=== PATIENT | female | born 1980 | race Caucasian/White ===

== ENCOUNTER 2017-08-06 17:41 | Emergency (ER) | payer MEDICAID ==
[~2017-08-06 17:41] MED LIST: ALBU1AER INH; BACT800T5 PO; CEPH500C3 PO
[2017-08-06 18:04] VITALS: BP 126/56; PULSE 78; RESP 15; TEMP 98.7; O2SAT 99
--- NOTE | 2017-08-06 19:24 | PD ---
HPI Chief Complaint: Fall Time Seen by Provider: 18:39 Travel History International Travel<30 days: No Contact w/Intl Traveler<30days: No Traveled to known affect area: No History of Present Illness HPI This is a 37-year-old female here with right buttocks and hip pain after she fell while in the shower yesterday. No head injury or loss of consciousness. Patient is not anticoagulated. Denies headache, visual changes, neck pain, chest pain, shortness breath, abdominal pain, paresthesia or weakness of the extremities. She has pain with ambulating and sitting in the right hip/pelvic region. 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 Bruising to the right gluteal HEAD: Normocephalic. EYES: No injection or drainage. NECK: Supple. No midline spine tenderness CARDIOVASCULAR: Regular rate and rhythm. No chest wall tenderness RESPIRATORY: Breath sounds equal bilaterally. No accessory muscle use. GASTROINTESTINAL: Abdomen soft, non-tender, nondistended. MUSCULOSKELETAL: No cyanosis, or edema. +TTP right hip and iliac crest. Pelvis is stable. Pain with external rotation of the hip. Normal sensation in the lower extremity. 2+ dorsal pedis pulses. Brisk cap refill. BACK: Cervical, thoracic, lumbar spine nontender. Without obvious deformity. No CVA tenderness. Data Data Last Documented VS Vital Signs Date Time Temp Pulse Resp B/P (MAP) Pulse Ox O2 Delivery O2 Flow Rate FiO2 08/06/17 18:04 98.7 78 15 126/56 (79) 99 Orders Orders Ed Urine Pregnancytest Poc (08/06/17 18:51) Hip, Uni(Ap&Lat) W Ap Pelvis (08/06/17 ) MDM Medical Decision Making Medical Screen Exam Complete: Yes Emergency Medical Condition: Yes Differential Diagnosis Contusion, pelvic fracture, hip fracture Narrative Course 37-year-old female with right hip pain after slip and fall in the shower. She has a normal neurologic exam. Her extremity is neurologically intact. X-ray right hip/pelvis: Negative for fracture Diagnosis Primary Impression: Contusion Qualified Codes: S70.01XA - Contusion of right hip, initial encounter Referrals: Primary Care Physician Additional Instructions: Tylenol and ibuprofen as needed for pain. apply ice to the area. Follow-up with her primary doctor Disposition: 01 DISCHARGE HOME Condition: Stable Leyda House Aug 06, 2017 19:24
--- NOTE | 2017-08-06 20:08 | RADRPT ---
EXAM DATE/TIME: 08/06/2017 19:03 [facility] COMPARISON: No previous studies available for comparison. INDICATIONS : Right buttock and hip pain after fall. MEDICAL HISTORY : None. SURGICAL HISTORY : None. ENCOUNTER: Initial ACUITY: 2 days PAIN SCORE: 9/10 LOCATION: Right buttock FINDINGS: Examination of the right hip was performed with AP Pelvis. The primary and secondary trabecular susan chuckie of the femoral neck is intact. The hip joint is of normal width without significant sclerosis or bony hypertrophy. The acetabulum is grossly intact. CONCLUSION: No evidence of recent bony injury. Curtis Elizabeth MD on August 06, 2017 at 20:06 Board Certified Radiologist. This report was verified electronically.
== END 2017-08-06 19:46 | disposition home or self-care (01) ==
LOC: NEPK 17:41
DX: S70.01XA Contusion of right hip, initial encounter (principal); W18.2XXA Fall in (into) shower or empty bathtub, initial encounter; Y93.E1 Activity, personal bathing and showering; Y92.002 Bathroom of unspecified non-institutional (private) residence as the place of occurrence of the external cause; Z72.0 Tobacco use
CPT/HCPCS: 73502; 84703; 99283